=== PATIENT | male | born 1955 | race Caucasian/White ===

== ENCOUNTER 2021-02-13 15:16 | Inpatient (IN) | payer OTHER ==
[~2021-02-13] VITALS: Ht 167.6 cm; Wt 76.7 kg
[2021-02-13] MEDS ORDERED: NEURONTIN300 MG (15:34)
[2021-02-13] MEDS ORDERED: PROSCAR5 MG (15:34)
[2021-02-13] MEDS ORDERED: TAMS0.4C (15:34)
[2021-02-13] MEDS ORDERED: PEPCID AC10 MG (15:34)
[2021-02-13] MEDS ORDERED: LOSARTAN POTAS100 MG (15:34)
[2021-02-13] MEDS ORDERED: HUMALOG100 UNIT/1 (15:35)
[2021-02-22] MEDS ORDERED: TAMS0.4C PO (14:29)
[2021-02-22] MEDS ORDERED: CARdura 4MG TABLET PO (14:30)
[2021-02-22] MEDS ORDERED: AMLODIPINE BESY10 MG PO (14:30)
[2021-02-22] MEDS ORDERED: HYDRALAZINE HCL50 MG PO (14:30)
[2021-02-22] MEDS ORDERED: GABAPENTIN300 MG PO (14:31)
[2021-02-22] MEDS ORDERED: INTESTINEX680 M1 PO (14:31)
[2021-02-22] MEDS ORDERED: PROSCAR5 MG PO (14:31)
[2021-02-22] MEDS ORDERED: CARDURA XL4 MG PO (14:34)
== END 2021-02-22 18:13 | disposition home or self-care (01) | DRG 256 ==
LOC: ER 15:16 → EDBD 02-14 10:49 → SEC-K 02-14 10:49 → MEDI 02-14 10:49
PROVIDERS: ADMIT Internal Medicine; ATTEND Internal Medicine
PROC: 0Y6Q0Z2 Detachment at Left 1st Toe, Mid, Open Approach (ICD-10-PCS; principal; 2021-02-20)
PROC: 0Y6W0Z2 Detachment at Left 4th Toe, Mid, Open Approach (ICD-10-PCS; 2021-02-20)
PROC: 0Y6U0Z2 Detachment at Left 3rd Toe, Mid, Open Approach (ICD-10-PCS; 2021-02-20)
PROC: 0Y6S0Z2 Detachment at Left 2nd Toe, Mid, Open Approach (ICD-10-PCS; 2021-02-20)
DX: I96 Gangrene, not elsewhere classified (principal); L97.424 Non-pressure chronic ulcer of left heel and midfoot with necrosis of bone; L97.414 Non-pressure chronic ulcer of right heel and midfoot with necrosis of bone; Z20.822 Contact with and (suspected) exposure to COVID-19; L08.89 Other specified local infections of the skin and subcutaneous tissue; B96.1 Klebsiella pneumoniae [K. pneumoniae] as the cause of diseases classified elsewhere; B96.5 Pseudomonas (aeruginosa) (mallei) (pseudomallei) as the cause of diseases classified elsewhere; B95.2 Enterococcus as the cause of diseases classified elsewhere; B95.62 Methicillin resistant Staphylococcus aureus infection as the cause of diseases classified elsewhere; B96.89 Other specified bacterial agents as the cause of diseases classified elsewhere; I77.9 Disorder of arteries and arterioles, unspecified